=== PATIENT | male | born 1990 | race Caucasian/White ===

== ENCOUNTER 2023-04-07 21:27 | Emergency (ER) | payer OTHER, SELFPAY ==
--- NOTE | ~2023-04-07 | CT_ITS ---
CT Facial Bones Clinical Indication: Left eye trauma Technique: Contiguous axial scans were obtained through the facial bones followed by coronal and sagi ttal reconstructions. Dose reduction technique was used on this scan by utilizing automated exposure control and iterative reconstruction technique. The dose-length product (DLP) was 401.91 mGy-cm. Findings: No fractures are identified. The visualized paranasal sinuses are clear. Intraorbital soft tissues appear normal. Impression: No fracture identified. Reviewed, dictated and finalized at location . Impression: No fracture identified.
[2023-04-07 21:35] VITALS: BP 138/71; PULSE 81; RESP 18; TEMP 36.9; O2SAT 99
--- NOTE | 2023-04-07 21:43 | PC.NURSE ---
Visual acuity tested using wall chart. Bilateral using glasses 20/25, Left eye ( effected eye) using glasses 20/50, Right eye using glasses 20/40
[2023-04-08] MEDS: HYDROcodone/acetaminophen (*CRX) 5-325 MG TABLET 1 TAB PO (00:03)
[2023-04-08] MEDS: TETRACAINE HCL 0.5% OPHTH SOLN 4 ML BTL 1 DROP EACH EYE (00:09)
[2023-04-08] MEDS: FLUORESCEIN SOD 1 MG/STRIP EACH EYE (00:09)
--- NOTE | 2023-04-08 00:18 | PC.NURSE ---
irrigated eye with saline per provider request
--- NOTE | 2023-04-08 00:22 | ED.EYEPROB ---
HPI - Eye Problem General Chief complaint: Eye Problems Stated complaint: left eye trauma Time Seen by Provider: 04/07/23 22:28 History of Present Illness HPI Narrative: 32-year-old male reports for evaluation of left eye pain after an injury that occurred just prior to arrival. Patient states he was trying to get a rope from a tree branch, so he grabbed a tree branch to pull his body weight into the tree, the branch broke and the tree branch hit his left eye. States he was wearing his contacts at the time but his contacts got knocked out. He reports pain in his eye and a sensation of a foreign body. He denies vision changes, headache, nausea or vomiting. Related Data Allergies Allergy/AdvReac Type Severity Reaction Status Date / Time amoxicillin Allergy Unknown Verified 04/07/23 21:30 Penicillins Allergy Unknown Verified 04/07/23 21:29 Review of Systems Review of Systems: CONSTITUTIONAL: Denies fever, chills EYES: Denies visual changes, redness, or discharge. ENT: See HPI CARDIOVASCULAR: Denies chest pain, palpitations, or edema. RESPIRATORY: Denies cough or dyspnea. GASTROINTESTINAL: Denies abdominal pain, nausea, vomiting, or diarrhea. GENITOURINARY: Denies dysuria or hematuria. SKIN: Denies rash or itching. MUSCULOSKELETAL: Denies back pain, joint pain, or myalgia. NEUROLOGIC: Denies headache, numbness, dizziness, or weakness. PSYCHIATRIC: Denies anxiety or depression. Exam Narrative: GENERAL: Well-appearing, in no acute distress. HEAD: Normocephalic EYES: PERRLA, EOMI. Visual acuity L 20/50, R 20/40. Peripheral vision intact. L eyelids swollen with ecchymosis and tenderness to the floor of the orbit. L globe with erythematous sclera, clear drainage. Fluorescein exam shows a deep abrasion to the L sclera extending into the cornea. There is not a full Miladis sign, but there is gelatinous material that takes up fluorescein in the 4:00 position traveling to the center of the eye. The anterior chamber is on inspection. Tonometry 22-23mmHg in L, 10mmHg in R. ENT: Nares clear. Mucous membranes moist. Oropharynx without tonsillar hypertrophy exudate or other lesions. NECK: Supple. CHEST: No respiratory distress. Clear to auscultation, no adventitious breath sounds. HEART: Regular rate and rhythm. No murmur heard. Normal peripheral pulses. EXTREMITIES: Normal range of motion. No edema. SKIN: Warm, dry, no rash. NEURO: No focal deficits. Alert and oriented x3. PSYCH: Normal mood and affect. Course Vital Signs Vital signs: Vital Signs Temperature 98.4 F 04/07/23 21:35 Pulse Rate 81 04/07/23 21:35 Respiratory Rate 18 04/07/23 21:35 Blood Pressure 138/71 04/07/23 21:35 Pulse Oximetry 99 04/07/23 21:35 Oxygen Delivery Room Air 04/07/23 21:35 Temperature 98.4 F 04/07/23 21:35 Pulse Rate 50 L 04/08/23 01:38 Respiratory Rate 18 04/08/23 01:38 Blood Pressure 126/78 04/08/23 01:38 Pulse Oximetry 100 04/08/23 01:38 Oxygen Delivery Room Air 04/07/23 21:35 MDM - Eye Problem MDM Narrative Medical decision making narrative: 32-year-old male reports for evaluation of left eye pain after he was holding onto a tree branch, the tree branch broke and hit his eye. Vitals stable. Exam significant for decreased visual acuity of 20 out of 50 in left eye compared to 20 out of 40 in right eye, there is a deep abrasion in the 4 o'clock position that travels towards the center of the eye with gelatinous material with increased uptake of fluorescein, no evidence of a hyphema, PERRLA, EOMI. Tonometry increased to 23 mmHg in the right eye compared to [address] maxillofacial reveals no acute fracture of the orbits and no comment on foreign body or hematoma Case discussed with Dr. Santana with [facility] ophthalmology who agrees to evaluate the patient tonight. Case was discussed with Dr. Barakat at [facility] ED who agrees to accept the patient. Patient opting to be transferred via private vehicle,
[2023-04-08 01:38] VITALS: BP 126/78; PULSE 50; RESP 18; O2SAT 100
== END 2023-04-08 02:29 | disposition short-term general hospital (02) ==
PROVIDERS: Emergency Provider Physician Assistant; PCP Internal Medicine Infectious Disease
DX: S05.32XA Ocular laceration without prolapse or loss of intraocular tissue, left eye, initial encounter (principal); W22.8XXA Striking against or struck by other objects, initial encounter
CPT/HCPCS: 70486; 99284; A9270